=== PATIENT | male | born 1995 | race American Indian/Alaskan Native ===

== ENCOUNTER 2017-02-08 20:47 | Emergency (ER) | payer SELFPAY ==
[2017-02-08 21:16] VITALS: BMI 41.2
[2017-02-08 21:20] VITALS: BP 148/86; PULSE 68; RESP 18; TEMP 98.2; O2SAT 95
[2017-02-08] MEDS ORDERED: Naproxen 550 mg Tab PO STA (21:54)
[2017-02-08] MEDS ORDERED: TDAP Vaccine 0.5 mL Syr IM ONE (21:54)
--- NOTE | 2017-02-08 22:33 | ED PDOC ---
Arrival/HPI - General Chief Complaint: Wound Check Time Seen by Provider: 02/08/17 21:34 Historian: Patient - History of Present Illness Narrative History of Present Illness (Text): 02/08/17 22:32 Patient reports injuring his right foot when he was wearing his sneakers and stepped on a screw prior to arrival, states that he removed the screw entirely by himself. Otherwise: (-) other injury, (-) numbness. Tetanus not up to date PMD none Past Medical History - Provider Review Nursing Documentation Reviewed: Yes - Tetanus Immunization Tetanus Immunization: Unknown - Pulmonary Hx Asthma: Yes - Psychiatric Hx Anxiety: No Hx Depression: No Hx Panic Disorder: No Hx Substance Use: No - Past Surgical History Past Surgical History: No Previous - Suicidal Assessment Feels Threatened In Home Enviroment: No Family/Social History - Physician Review Nursing Documentation Reviewed: Yes Family/Social History: No Known Family HX Smoking Status: Never Smoked Hx Alcohol Use: No Hx Substance Use: No Allergies/Home Meds Allergies/Adverse Reactions: Allergies No Known Allergies Allergy (Verified 02/08/17 21:16) Review of Systems - Review of Systems Constitutional: Normal. absent: Fatigue, Weight Change, Fevers Musculoskeletal: Normal, Arthralgias (R foot pain). absent: Back Pain, Neck Pain, Joint Swelling Skin: Normal. absent: Rash, Pruritis, Skin Lesions Physical Exam - Physical Exam Narrative Physical Exam (Text): 02/08/17 22:33 GENERAL APPEARANCE: Patient is awake, alert, oriented x 3, in mild painful distress. SKIN: Warm, dry, (-) skin leasions or rashes. LOWER EXTREMITY: (+) Puncture wound to the plantar aspect of the right foot proximal to the heel with tenderness to palpation, (-) swelling, (-) ecchymosis. (-) crepitus, (-) deformity. Tendon function intact. (-) distal neurovascular deficit. + 2 point discrimination. Remainder of foot, digits and ankle: (-) injury except. Vital Signs Temp Pulse Resp BP Pulse Ox 02/08/17 21:16 98.2 F 68 18 148/86 95 Medical Decision Making ED Course and Treatment: 02/08/17 22:34 21 yo M presents with a puncture wound to the right foot, screw that went through his sneaker. Plan: -- X-ray right foot -- Tetanus IM -- Cipro by mouth -- Naproxen by mouth XR R foot: no fracture, no FB, as read by PA Patient advised that official radiology read of XR is still pending and will call the patient if there is any discrepancy within 24 hours. X-ray results discussed with the patient in great detail. Wound cleaned and irrigated, cleaned dressing applied. Based on history, exam and diagnostic results plan will be for outpatient follow -up with the clinic. Prescription provided. Patient states he fully agrees with and understands discharge instructions. States that he agrees with the plan and disposition. Verbalized and repeated discharge instructions and plan. I have given the patient opportunity to ask any additional questions. Follow up with the clinic in 1-2 days without fail. Advised to take medication as prescribed. Return to the emergency room at any time for any new or worsening symptoms. - RAD Interpretation Radiology Orders: 02/08/17 21:54 FOOT RIGHT 3 VIEWS ROUTINE [RAD] Stat - Medication Orders Current Medication Orders: Discontinued Medications Ciprofloxacin (Cipro) 500 mg PO ONCE STA PRN Reason: Protocol Stop: 02/08/17 21:55 Naproxen (Anaprox Ds) 550 mg PO ONCE STA Stop: 02/08/17 21:55 Tetanus/Reduced Diphtheria/Acell Pertussis (Boostrix Vaccine Inj) 0.5 ml IM .ONCE ONE Stop: 02/08/17 21:55 - PA / MATERIAL ENGINEER / Resident Statement / has reviewed & agrees with the documentation as recorded. Disposition/Present on Arrival - Present on Arrival Any Indicators Present on Arrival: No History of DVT/PE: No History of Uncontrolled Diabetes: No Urinary Catheter: No History of Decub. Ulcer: No History Surgical Site Infection Following: None - Disposition Have Diagnosis and Disposition been Completed?: Yes Diagnosis: Puncture wound of foot Disposition: HOME/ ROUTINE Disposition Time: 22:37 Patient Plan: Discharge Condition: STABLE Discharge Instructions (ExitCare): Puncture Wound (ED), Acute Wound Care (ED) Print Language: PASHTO Additional Instructions: Thank you for letting us take care of you today. You were treated for puncture wound right foot. The emergency medical care you received today was directed at your acute symptoms. If you were prescribed any medication, please fill it and take as directed. It may take several days for your symptoms to resolve. Return to the Emergency Department if your symptoms worsen, do not improve, or if you have any other problems. Please contact the clinic in 2 days for re-evaluation and follow up. Bring any paperwork you were given at discharge with you along with any medications you are taking to your follow up visit. Our treatment cannot replace ongoing medical care by a primary care provider (PCP) outside of the emergency department. Thank you for allowing the [facility] team to be part of your care today. Prescriptions: Ciprofloxacin [Cipro] 500 mg PO BID #14 tab Naproxen 500 mg PO BID #30 tab Referrals: [facility] at [facility] [place] [Outside] - Follow up with primary Forms: WORK NOTE, SCHOOL NOTE
--- NOTE | 2017-02-09 07:44 | RAD ---
PROCEDURE: Right Foot Radiographs. HISTORY: pain, trauma . The arrow indicates the area of interest - the plantar mid- hindfoot junction COMPARISON: None. FINDINGS: BONES: Mild hallucis valgus orientation present. Sissoring of the great toe towards the 2nd and the over the 4th. The 5th middle-distal phalanges are fused. No fracture. JOINTS: Normal. SOFT TISSUES: Normal. OTHER FINDINGS: None. IMPRESSION: No fracture appreciated
== END 2017-02-08 22:50 | disposition home or self-care (01) ==
LOC: ED 20:47
DX: S91.331A Puncture wound without foreign body, right foot, initial encounter (principal); W26.8XXA Contact with other sharp object(s), not elsewhere classified, initial encounter; Y92.9 Unspecified place or not applicable; Z23 Encounter for immunization

== ENCOUNTER 2017-03-15 03:13 | Emergency (ER) | payer SELFPAY ==
[2017-03-15 03:24] VITALS: BMI 43.6
[2017-03-15 03:28] VITALS: TEMP 98.1; O2SAT 99
[2017-03-15] MEDS ORDERED: Tobramycin 0.3% OPHT SOLN OD STA (03:34)
--- NOTE | 2017-03-15 03:47 | ED PDOC ---
Arrival/HPI - General Chief Complaint: ENT Problem Time Seen by Provider: 03/15/17 03:17 Historian: Patient - History of Present Illness Narrative History of Present Illness (Text): 03/15/17 03:45 Yaa Amin is a 21 year old male who presents to the emergency department complaining of 3 day duration of right sided ear pain and right eye redness. Denies any fever, chills, headache, dizziness, difficulty breathing, nausea, vomiting, diarrhea, or any other complaints at this time. Time/Duration: < week (3 days ) Symptom Onset: Gradual Severity Level: Mild Activities at Onset: Light Past Medical History - Provider Review Nursing Documentation Reviewed: Yes - Infectious Disease Hx of Infectious Diseases: None - Tetanus Immunization Tetanus Immunization: Unknown - Cardiac Hx Cardiac Disorders: No - Pulmonary Hx Respiratory Disorders: Yes Hx Asthma: Yes - Neurological Hx Neurological Disorder: No - HEENT Hx HEENT Disorder: No - Renal Hx Renal Disorder: No - Endocrine/Metabolic Hx Endocrine Disorders: No - Hematological/Oncological Hx Blood Disorders: No - Integumentary Hx Dermatological Disorder: No - Musculoskeletal/Rheumatological Hx Musculoskeletal Disorders: No - Gastrointestinal Hx Gastrointestinal Disorders: No - Genitourinary/Gynecological Hx Genitourinary Disorders: No - Psychiatric Hx Psychophysiologic Disorder: No Hx Substance Use: No - Past Surgical History Past Surgical History: No Previous - Anesthesia Hx Anesthesia: No - Suicidal Assessment Feels Threatened In Home Enviroment: No Family/Social History - Physician Review Nursing Documentation Reviewed: Yes Family/Social History: No Known Family HX Smoking Status: Never Smoked Hx Alcohol Use: No Hx Substance Use: No Allergies/Home Meds Allergies/Adverse Reactions: Allergies No Known Allergies Allergy (Verified 02/08/17 21:16) Review of Systems - Physician Review All systems were reviewed & negative as marked: Yes - Review of Systems Constitutional: Normal. absent: Fatigue, Fevers Eyes: Eye Pain (right eye redness ). absent: Vision Changes, Photophobia ENT: Other (right ear pain ) Respiratory: Normal. absent: SOB, Cough Cardiovascular: Normal. absent: Chest Pain, Palpitations Gastrointestinal: Normal Genitourinary Male: Normal Neurological: Normal. absent: Headache, Dizziness Psychiatric: Normal Physical Exam Vital Signs Reviewed: Yes Vital Signs Temp Pulse Resp BP Pulse Ox 03/15/17 04:17 72 14 142/89 99 03/15/17 03:26 98.1 F 75 18 141/83 99 Temperature: Afebrile Blood Pressure: Normal Pulse: Regular Respiratory Rate: Normal Appearance: Positive for: Well-Appearing, Non-Toxic, Comfortable Pain Distress: None Mental Status: Positive for: Alert and Oriented X 3 - Systems Exam Head: Present: Atraumatic, Normocephalic Pupils: Present: PERRL Conjunctiva: Present: Injected (Right eye ) Ears: Present: Normal, Erythema (right TM ). No: Normal Canal, TM Bulging, Fluid Mouth: Present: Moist Mucous Membranes Respiratory/Chest: Present: Clear to Auscultation, Good Air Exchange. No: Respiratory Distress, Accessory Muscle Use Cardiovascular: Present: Regular Rate and Rhythm, Normal S1, S2. No: Murmurs Abdomen: Present: Normal Bowel Sounds. No: Tenderness, Distention, Peritoneal Signs, Rebound, Guarding Upper Extremity: Present: Normal Inspection. No: Cyanosis, Edema Lower Extremity: Present: Normal Inspection. No: Edema Neurological: Present: GCS=15, CN II-XII Intact, Speech Normal, Motor Func Grossly Intact, Normal Sensory Function Skin: Present: Warm, Dry, Normal Color. No: Rashes Psychiatric: Present: Alert, Oriented x 3, Normal Insight, Normal Concentration Medical Decision Making ED Course and Treatment: 03/15/17 03:49 Impression: A 21 year old male who presents to the emergency department complaining of right ear pain and right eye redness for past 3 days. Plan: -- Amoxil -- Tobrex ophth soln -- Reassess and disposition Progress Notes: 03/15/17 03:50 Patient is stable for discharge. Advised to present to emergency department for new/worsening symptoms and follow up with PMD within few days. - Medication Orders Current Medication Orders: Discontinued Medications Amoxicillin (Amoxil 500 Mg Cap) 500 mg PO STAT STA PRN Reason: Protocol Stop: 03/15/17 03:36 Last Admin: 03/15/17 03:51 Dose: 500 mg Tobramycin Sulfate (Tobrex 0.3% Ophth Soln) 0 drop OD STAT STA Stop: 03/15/17 03:35 Last Admin: 03/15/17 03:51 Dose: 2 ea - Scribe Statement The provider has reviewed the documentation as recorded by the Giovanny Jules Provider Attestation: All medical record entries made by the Scribe were at my direction and personally dictated by me. I have reviewed the chart and agree that the record accurately reflects my personal performance of the history, physical exam, medical decision making, and the department course for this patient. I have also personally directed, reviewed, and agree with the discharge instructions and disposition. Disposition/Present on Arrival - Present on Arrival Any Indicators Present on Arrival: No History of DVT/PE: No History of Uncontrolled Diabetes: No Urinary Catheter: No History of Decub. Ulcer: No History Surgical Site Infection Following: None - Disposition Have Diagnosis and Disposition been Completed?: Yes Diagnosis: Otitis media of right ear, Conjunctivitis Disposition: HOME/ ROUTINE Disposition Time: 04:00 Condition: GOOD Discharge Instructions (ExitCare): Otitis Media (ED), Conjunctivitis (ED) Additional Instructions: 2 drops four times a day for 7 days Prescriptions: Amoxicillin 875 mg PO BID #20 tab
[2017-03-15 04:18] VITALS: BP 142/89; PULSE 72; RESP 14
== END 2017-03-15 04:19 | disposition home or self-care (01) ==
LOC: ED 03:13
DX: H10.9 Unspecified conjunctivitis (principal); H66.91 Otitis media, unspecified, right ear

== ENCOUNTER 2019-02-14 02:12 | Emergency (ER) | payer OTHER ==
[2019-02-14 02:13] VITALS: BMI 43.6
[2019-02-14 02:21] VITALS: RESP 18; TEMP 98.3; O2SAT 100
--- NOTE | 2019-02-14 02:30 | ED PDOC ---
Arrival/HPI - General Chief Complaint: Medical Clearance Time Seen by Provider: 02/14/19 02:20 Historian: Patient - History of Present Illness Narrative History of Present Illness (Text): 02/14/19 02:21 Yaa Amin is a 23 year old male, whose past medical history includes asthma, who presents to the ED complaining of wheezing since yesterday morning. Patient states symptoms are consistent with previous episodes of asthma but reports he does not have an inhaler at home. Patient denies any fever, chills, chest pain, nausea, vomiting, headache, dizziness, or any other complaints. Symptom Onset: Gradual Symptom Course: Unchanged Activities at Onset: Light Context: Home Past Medical History - Provider Review Nursing Documentation Reviewed: Yes - Infectious Disease Hx of Infectious Diseases: None - Tetanus Immunization Tetanus Immunization: Unknown - Cardiac Hx Cardiac Disorders: No - Pulmonary Hx Respiratory Disorders: Yes Hx Asthma: Yes - Neurological Hx Neurological Disorder: No - HEENT Hx HEENT Disorder: No - Renal Hx Renal Disorder: No - Endocrine/Metabolic Hx Endocrine Disorders: No - Hematological/Oncological Hx Blood Disorders: No - Integumentary Hx Dermatological Disorder: No - Musculoskeletal/Rheumatological Hx Musculoskeletal Disorders: No - Gastrointestinal Hx Gastrointestinal Disorders: No - Genitourinary/Gynecological Hx Genitourinary Disorders: No - Psychiatric Hx Psychophysiologic Disorder: No Hx Substance Use: No - Past Surgical History Past Surgical History: No Previous - Anesthesia Hx Anesthesia: No - Suicidal Assessment Feels Threatened In Home Enviroment: No Family/Social History - Physician Review Nursing Documentation Reviewed: Yes Family/Social History: Unknown Family HX Smoking Status: Never Smoked Hx Alcohol Use: No Hx Substance Use: No Allergies/Home Meds Allergies/Adverse Reactions: Allergies No Known Allergies Allergy (Verified 02/08/17 21:16) Review of Systems - Physician Review All systems were reviewed & negative as marked: Yes - Review of Systems Constitutional: Normal. absent: Fevers Eyes: Normal ENT: Normal Respiratory: Wheezing. absent: Cough Cardiovascular: Normal. absent: Chest Pain Gastrointestinal: Normal. absent: Abdominal Pain, Diarrhea, Nausea, Vomiting Genitourinary Male: Normal. absent: Dysuria, Frequency, Hematuria, Urinary Output Changes Musculoskeletal: Normal. absent: Back Pain, Neck Pain Skin: Normal. absent: Rash Neurological: Normal. absent: Headache, Dizziness Endocrine: Normal Hemo/Lymphatic: Normal Psychiatric: Normal Physical Exam Vital Signs Reviewed: Yes Vital Signs Temp Pulse Resp BP Pulse Ox 02/14/19 02:18 98.3 F 80 18 132/80 100 Temperature: Afebrile Blood Pressure: Normal Pulse: Regular Respiratory Rate: Normal Appearance: Positive for: Well-Appearing, Non-Toxic, Comfortable Pain Distress: None Mental Status: Positive for: Alert and Oriented X 3 - Systems Exam Head: Present: Atraumatic, Normocephalic Pupils: Present: PERRL Extroacular Muscles: Present: EOMI Conjunctiva: Present: Normal Mouth: Present: Moist Mucous Membranes Neck: Present: Normal Range of Motion Respiratory/Chest: Present: Wheezes (Wheezing bilaterally). No: Respiratory Distress, Accessory Muscle Use Cardiovascular: Present: Regular Rate and Rhythm, Normal S1, S2. No: Murmurs Abdomen: No: Tenderness, Distention, Peritoneal Signs Back: Present: Normal Inspection Upper Extremity: Present: Normal Inspection. No: Cyanosis, Edema Lower Extremity: Present: Normal Inspection. No: Edema Neurological: Present: GCS=15, CN II-XII Intact, Speech Normal Skin: Present: Warm, Dry, Normal Color. No: Rashes Psychiatric: Present: Alert, Oriented x 3, Normal Insight, Normal Concentration Medical Decision Making ED Course and Treatment: 02/14/19 02:22 Impression: 23 year old male complaining of wheezing since yesterday morning. Plan: -- Duoneb -- Reassess and disposition Progress Notes: - Scribe Statement The provider has reviewed the documentation as recorded by the Giovanny Krishnamurthy Provider Scribe Attestation: All medical record entries made by the Scribe were at my direction and personally dictated by me. I have reviewed the chart and agree that the record accurately reflects my personal performance of the history, physical exam, medical decision making, and the department course for this patient. I have also personally directed, reviewed, and agree with the discharge instructions and disposition. Disposition/Present on Arrival - Present on Arrival Any Indicators Present on Arrival: No History of DVT/PE: No History of Uncontrolled Diabetes: No Urinary Catheter: No History of Decub. Ulcer: No History Surgical Site Infection Following: None - Disposition Have Diagnosis and Disposition been Completed?: Yes Diagnosis: Asthma Disposition: HOME/ ROUTINE Disposition Time: 03:10 Patient Plan: Discharge Condition: GOOD Discharge Instructions (ExitCare): Asthma, Adult (DC) Additional Instructions: Take meds as prescribed/follow up with your doctor Prescriptions: Albuterol HFA [Ventolin HFA 90 mcg/actuation (8 g)] 2 puff IH [id number] PRN #1 puff PRN Reason: Wheezing Forms: [employer] ([place])
[2019-02-14] MEDS ORDERED: Albuterol-Ipratrop 3 mg / 0.5 (3 ml) UD IH STA (02:32)
[2019-02-14 03:34] VITALS: BP 130/78; PULSE 85
== END 2019-02-14 03:37 | disposition home or self-care (01) ==
LOC: ED 02:12
DX: J45.909 Unspecified asthma, uncomplicated (principal)

== ENCOUNTER 2019-03-12 02:24 | Emergency (ER) | payer OTHER ==
[2019-03-12 02:24] VITALS: BMI 43.6
[2019-03-12 02:40] VITALS: TEMP 98.3; O2SAT 100
[2019-03-12] MEDS: Albuterol-Ipratrop 3 mg / 0.5 (3 ml) UD IH SCH ×2 (02:43→02:56)
[2019-03-12] MEDS ORDERED: Albuterol-Ipratrop 3 mg / 0.5 (3 ml) UD ONE (02:46)
[2019-03-12 03:10] VITALS: BP 135/72; PULSE 90
[2019-03-12 03:12] VITALS: RESP 22
--- NOTE | 2019-03-12 03:19 | ED PDOC ---
Arrival/HPI - General Chief Complaint: Chest Pain Time Seen by Provider: 03/12/19 02:35 Historian: Patient - History of Present Illness Narrative History of Present Illness (Text): 03/12/19 02:45 Yaa Amin is a 23 year old male, whose past medical history includes asthma, who presents to the ED complaining of chest tightness. 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 Patient reports he developed chest tightness while at work today. Patient denies any fever, chills, nausea, vomiting, diarrhea, urinary symptoms, back pain, neck pain, headache, dizziness, or any other complaints. Symptom Onset: Gradual ( ) Symptom Course: Unchanged Activities at Onset: Light Context: Work Past Medical History - Provider Review Nursing Documentation Reviewed: Yes - Infectious Disease Hx of Infectious Diseases: None - Tetanus Immunization Tetanus Immunization: Unknown - Cardiac Hx Cardiac Disorders: No - Pulmonary Hx Respiratory Disorders: Yes Hx Asthma: Yes - Neurological Hx Neurological Disorder: No - HEENT Hx HEENT Disorder: No - Renal Hx Renal Disorder: No - Endocrine/Metabolic Hx Endocrine Disorders: No - Hematological/Oncological Hx Blood Disorders: No - Integumentary Hx Dermatological Disorder: No - Musculoskeletal/Rheumatological Hx Musculoskeletal Disorders: No - Gastrointestinal Hx Gastrointestinal Disorders: No - Genitourinary/Gynecological Hx Genitourinary Disorders: No - Psychiatric Hx Psychophysiologic Disorder: No Hx Substance Use: No - Past Surgical History Past Surgical History: No Previous - Anesthesia Hx Anesthesia: No - Suicidal Assessment Feels Threatened In Home Enviroment: No Family/Social History - Physician Review Nursing Documentation Reviewed: Yes Family/Social History: Unknown Family HX Smoking Status: Never Smoked Hx Alcohol Use: No Hx Substance Use: No Allergies/Home Meds Allergies/Adverse Reactions: Allergies No Known Allergies Allergy (Verified 03/12/19 02:31) Review of Systems - Physician Review All systems were reviewed & negative as marked: Yes - Review of Systems Constitutional: Normal. absent: Fevers Eyes: Normal ENT: Normal Respiratory: Normal. absent: SOB, Cough Cardiovascular: Chest Pain (+chest tightness) Gastrointestinal: Normal. absent: Abdominal Pain, Diarrhea, Nausea, Vomiting Genitourinary Male: Normal. absent: Dysuria, Frequency, Hematuria, Urinary Output Changes Musculoskeletal: Normal. absent: Back Pain, Neck Pain Skin: Normal. absent: Rash Neurological: Normal. absent: Headache, Dizziness Endocrine: Normal Hemo/Lymphatic: Normal Psychiatric: Normal Physical Exam Vital Signs Reviewed: Yes Vital Signs Temp Pulse Resp BP Pulse Ox 03/12/19 03:10 22 100 03/12/19 03:09 90 18 135/72 100 03/12/19 02:38 98.3 F 97 H 22 191/95 H 100 Temperature: Afebrile Blood Pressure: Hypertensive Pulse: Regular Respiratory Rate: Normal Appearance: Positive for: Well-Appearing, Non-Toxic, Comfortable Pain Distress: None Mental Status: Positive for: Alert and Oriented X 3 - Systems Exam Head: Present: Atraumatic, Normocephalic Pupils: Present: PERRL Extroacular Muscles: Present: EOMI Conjunctiva: Present: Normal Mouth: Present: Moist Mucous Membranes Neck: Present: Normal Range of Motion. No: Meningeal Signs, Lymphadenopathy Respiratory/Chest: Present: Wheezes. No: Respiratory Distress, Accessory Muscle Use Cardiovascular: Present: Regular Rate and Rhythm, Normal S1, S2. No: Murmurs Abdomen: No: Tenderness, Distention, Peritoneal Signs Back: Present: Normal Inspection Upper Extremity: Present: Normal Inspection. No: Cyanosis, Edema Lower Extremity: Present: Normal Inspection. No: Edema Neurological: Present: GCS=15, CN II-XII Intact, Speech Normal Skin: Present: Warm, Dry, Normal Color. No: Rashes Psychiatric: Present: Alert, Oriented x 3, Normal Insight, Normal Concentration Medical Decision Making ED Course and Treatment: 03/12/19 02:45 Impression: 23 year old male complaining of chest tightness. Plan: -- EKG -- Duoneb -- Reassess and disposition Prior Visits: Notes and results from previous visits were reviewed. Progress Notes: Reviewed EKG, NSR at [address]-segment elevations or depressions, no T-wave inversions, normal intervals. - EKG Interpretation Interpreted by ED Physician: Yes Type: 12 lead EKG - Medication Orders Current Medication Orders: Albuterol/Ipratropium (Duoneb 3 Mg/0.5 Mg (3 Ml) Ud) 3 ml IH Q15M WILIAN Stop: 03/12/19 03:16 Last Admin: 03/12/19 02:56 Dose: 3 ml - Scribe Statement The provider has reviewed the documentation as recorded by the Giovanny Krishnamurtyh Provider Scribe Attestation: All medical record entries made by the Scribe were at my direction and person ally dictated by me. I have reviewed the chart and agree that the record accurately reflects my personal performance of the history, physical exam, medical decision making, and the department course for this patient. I have also personally directed, reviewed, and agree with the discharge instructions and disposition. Disposition/Present on Arrival - Present on Arrival Any Indicators Present on Arrival: No History of DVT/PE: No History of Uncontrolled Diabetes: No Urinary Catheter: No History of Decub. Ulcer: No History Surgical Site Infection Following: None - Disposition Have Diagnosis and Disposition been Completed?: Yes Diagnosis: Asthma Disposition: HOME/ ROUTINE Disposition Time: 03:45 Condition: IMPROVED Discharge Instructions (ExitCare): Asthma in Adults Prescriptions: Albuterol HFA [Ventolin HFA 90 mcg/actuation (8 g)] 2 puff IH [id number] PRN #1 puff PRN Reason: Wheezing Forms: [employer] [facility] ([place]), WORK NOTE
--- NOTE | 2019-03-12 17:22 | CARD ---
APPROVED REPORT Date of service: 03/12/2019 EKG Measurement Heart [id number] <Conclusion> Normal sinus rhythm Normal ECG
== END 2019-03-12 03:45 | disposition home or self-care (01) ==
LOC: ED 02:24
DX: J45.909 Unspecified asthma, uncomplicated (principal)